=== PATIENT | female | born 1995 | race Caucasian/White ===

== ENCOUNTER → 2016-11-15 | Outpatient (CLI) | payer BC ==
--- NOTE | 2016-11-16 22:01 | DI ---
XR SACRUM/COCCYX MIN 2VW, : Clinical History: Status post fall. Previous Exam: None at this facility. Findings: AP and lateral views of the sacrum are obtained, and demonstrate anatomic alignment without fractures . A nonobstructive bowel gas pattern is noted. No pathologic calcifications are seen. Impression: No fractures.
--- NOTE | 2016-11-16 22:01 | DI ---
XR L-SPINE 2-3 VW,11/15/2016 12:00 PM: Clinical History: Status post fall. Previous Exam: None at this facility. Findings: AP and lateral views of the lumbar spine are obtained, and demonstrate some gentle levoscoliosis of t he lumbar spine centered at the L3 level. There are no pathologic calcifications. Vertebral body height is preserved. Impression: No fractures.
== END ==
LOC: MOB RAD 12:01
PROVIDERS: ATTEND Physician Assistant
DX: M53.3 Sacrococcygeal disorders, not elsewhere classified (principal); M54.5 Low back pain; S30.0XXA Contusion of lower back and pelvis, initial encounter; W10.9XXA Fall (on) (from) unspecified stairs and steps, initial encounter
CPT/HCPCS: 72100; 72220

== ENCOUNTER 2019-04-20 23:10 | Inpatient (IN) ==
[2019-04-21] MEDS ORDERED: Lactated Ringers 500 ML PRIMARY IV ONE (01:28)
[2019-04-21] MEDS ORDERED: Lactated Ringers-OB Dept 2,000 ML ONE (01:30)
[2019-04-21 01:58] LABS: Hematocrit [HCT] 34.5 % (37.0-47.0); Hemoglobin [HGB] 11.5 g/dL (12.0-16.0); MEAN CORPUSCULAR HGB CONC 33.3 g/dL (33-37); MEAN CORPUSCULAR VOLUME 86.9 FL (81-99); MEAN PLATELET VOLUME 10.6 FL (7.4-12.2); RED BLOOD COUNT 3.97 10^6/uL (4.20-5.40)
[2019-04-21] MEDS ORDERED: NALOXONE 0.4 MG/1 ML VIAL IVP PRN (06:03)
[2019-04-21] MEDS ORDERED: Lidocaine 1% 10 MG/ML - 20 ML VIAL SUBCUT PRN (06:03)
[2019-04-21] MEDS ORDERED: Carboprost Inj 250 MCG/ML AMP IM PRN (06:03)
[2019-04-21] MEDS ORDERED: Metoclopramide Inj 10 MG/2 ML VIAL IV PRN (06:03)
[2019-04-21] MEDS ORDERED: diphenhydrAMINE 50 MG/1 ML VIAL IVP PRN (06:03)
[2019-04-21] MEDS ORDERED: CITRIC ACID/SODIUM CITRATE 30 ML CUP PO PRN (06:03)
[2019-04-21] MEDS ORDERED: OXYTOCIN 10 UNIT/1 ML IM PRN (06:03)
[2019-04-21] MEDS ORDERED: CefOXitin Inj 2 GM in Sodium Chloride 0.9% 100 ML IV PRN (06:03)
[2019-04-21] MEDS ORDERED: BUTORPHANOL TARTRATE 2 MG/1 ML VIAL IVP PRN (06:03)
[2019-04-21] MEDS ORDERED: TERBUTALINE SULFATE 1 MG/1 ML SDV SUBCUT PRN (06:03)
[2019-04-21] MEDS ORDERED: ONDANSETRON 4 MG/2 ML VIAL IVP PRN (06:03)
[2019-04-21] MEDS ORDERED: Naloxone Inj 0.01 MG in Sodium Chloride 0.9% vial 1 ML IVP PRN (06:03)
[2019-04-21] MEDS ORDERED: Nalbuphine Inj 20 MG/ML Ampule IVP PRN (06:03)
[2019-04-21] MEDS ORDERED: MISOPROSTOL 200 MCG TABLET RECTAL PRN (06:03)
[2019-04-21] MEDS ORDERED: Phenylephrine Inj 50 MCG in Sodium Chloride 0.9% vial 0.5 ML IVP PRN (06:03)
[2019-04-21] MEDS ORDERED: METHYLERGONOVINE MALEATE 0.2 MG/1 ML VIAL IM PRN (06:03)
[2019-04-21] MEDS ORDERED: FAMOTIDINE 20 MG/2 ML VIAL IVP PRN ×2 (06:03)
[2019-04-21] MEDS ORDERED: ePHEDrine Inj 50 MG/ML AMP IVP PRN (06:03)
[2019-04-21] MEDS ORDERED: LIDOCAINE HCL 2 % 10 ML JELLY URO-JECT TOPICAL PRN (06:03)
[2019-04-21] MEDS ORDERED: LIDOCAINE W/ SODIUM BICARB 0.5 ML SYR SUBD PRN (06:03)
[2019-04-21] MEDS ORDERED: fentaNYL Inj 100 MCG/2 ML VIAL IV PRN (06:03)
[2019-04-21] MEDS ORDERED: Oxytocin 20 Units + LR 20 UNIT/1,000 ML BAG IV SCH ×2 (06:15→11:15)
[2019-04-21] MEDS ORDERED: Fent/Bupiv 2mcg/0.0625% Epid 250 ML ONE (06:50)
[2019-04-21] MEDS ORDERED: Lidocaine/Epi Inj 1.5% 5 ML AMPUL EPIDURAL ONE (06:57)
--- NOTE | 2019-04-21 07:19 | CRNA.PROCE ---
Central Neuraxis Block Placemt - - Safety Measures: Time Out Taken - - Type of Block: Epidural Reason for Block: Analgesia Moniters Used During Block: SPO2, NIBP Skin Prep Used: ChloroPrep Skin Infiltration - Enter Amount Used in Comment Field: 1% Xylocaine (mL): Yes (skin wheal) Spinal Needle Used: 18 Hustead 80 mm Local Anesthetic - Enter Amount Used in Comment Field: 1.5 % Xylocaine with Epinephrine 1:200,000 (mL): Yes (5ml) Number of Centimeters Catheter Threaded: 4 Bioclusive Dressing Applied: Yes Anesthesia Time - Other Weight: 94.347 kg Height: 5 ft 5 in Body Mass Index (BMI): 34.6
--- NOTE | 2019-04-21 07:20 | CRNA.PROGR ---
Anesthesia Time - Procedure/Recovery Time Start Date: 04/21/19 End Date: 04/22/19 Anesthesia : Time In: 06:58 Anesthesia : Time Out: 23:37 Anesthesia : Total Time: 2439 - Total Anesthesia Time Total Anesthesia Time (minutes): 2439 - Other Weight: 94.347 kg Height: 5 ft 5 in Body Mass Index (BMI): 34.6 Physical Status: P2 Anesthesia Type: Epidural Obstetrics: Planned vaginal delivery w/ neuraxial labor anesthesia/analog
[2019-04-21] MEDS ORDERED: fentaNYL 2 MCG/BUPIVACAINE 0.0625%/NS 0.9% 250 ML BAG EPIDURAL SCH (07:30)
[2019-04-21 07:45] LABS: Hematocrit [HCT] 33.9 % (37.0-47.0); Hemoglobin [HGB] 11.4 g/dL (12.0-16.0); MEAN CORPUSCULAR HGB CONC 33.6 g/dL (33-37); MEAN CORPUSCULAR VOLUME 86.5 FL (81-99); MEAN PLATELET VOLUME 10.5 FL (7.4-12.2); RED BLOOD COUNT 3.92 10^6/uL (4.20-5.40)
[2019-04-21] MEDS: CALCIUM CARBONATE 500 MG (TUMS) CHEWABLE TABLET PO PRN ×2 (07:53→11:57)
[2019-04-21] MEDS: Lactated Ringers 1,000 ML PRIMARY IV SCH ×2 (07:54→17:41)
[2019-04-21] MEDS ORDERED: fentaNYL Inj 100 MCG/2 ML VIAL ONE (23:16)
[2019-04-22] MEDS ORDERED: LIDOCAINE MPF 2% - 5 ML (20 MG/1 ML) ONE
[2019-04-22] MEDS ORDERED: METHYLERGONOVINE MALEATE 0.2 MG/1 ML VIAL IM ONE ×2 (00:11→01:46)
[2019-04-22] MEDS ORDERED: fentaNYL Inj 100 MCG/2 ML VIAL ONE (00:18)
[2019-04-22] MEDS ORDERED: OXYTOCIN 10 UNIT/1 ML ONE ×2 (00:19→00:20)
[2019-04-22] MEDS ORDERED: Lactated Ringers 2,000 ML PRIMARY IV ONE (00:20)
[2019-04-22] MEDS ORDERED: ONDANSETRON 4 MG/2 ML VIAL ONE (00:30)
[2019-04-22] MEDS ORDERED: DEXAMETHASONE PF 10 MG/1 ML VIAL ONE (00:31)
[2019-04-22] MEDS ORDERED: HYDROmorphone 2 MG/1 ML IVP PRN (01:00)
[2019-04-22] MEDS ORDERED: Prochlorperazine Edisylate Inj 10mg/2ml vial IVP PRN (01:00)
[2019-04-22] MEDS ORDERED: LIDOCAINE W/ SODIUM BICARB 0.5 ML SYR SUBD PRN (01:00)
--- NOTE | 2019-04-22 01:03 | CRNA.PROGR ---
Anesthesia Time - Procedure/Recovery Time Start Date: 04/21/19 End Date: 04/22/19 Anesthesia : Time In: 23:38 Anesthesia : Time Out: 00:59 Anesthesia : Total Time: 81 - Total Anesthesia Time Total Anesthesia Time (minutes): 81 - Other Weight: 94.347 kg Height: 5 ft 5 in Body Mass Index (BMI): 34.6 Physical Status: P2 Anesthesia Type: Spinal Block Obstetrics: C/S with anesthesia/analog following neuraxial labor
--- NOTE | 2019-04-22 01:04 | CRNA.PROGR ---
Anesthesia Recovery Phase I - Post Anesthesia Evaluation Patient's Condition on Arrival in Phase I: Stable Pain Level: 2
--- NOTE | 2019-04-22 01:07 | CRNA.PROCE ---
Central Neuraxis Block Placemt - - Type of Block: Subarachnoid Reason for Block: Surgical Moniters Used During Block: EKG, SPO2, NIBP Positioning: Sitting Skin Prep Used: ChloroPrep Draped: No Spinal Needle Used: 25 Familia 80 mm Local Anesthetic - Enter Amount Used in Comment Field: 0.75 % Bupivacaine with Dextrose (ml): Yes (2ml) Additive Used - Enter Amount Used in Comment Field: Fentanyl (mcg): Yes (15mcg) Bioclusive Dressing Applied: No Anesthesia Time - Other Weight: 94.347 kg Height: 5 ft 5 in Body Mass Index (BMI): 34.6
[2019-04-22] MEDS ORDERED: SUCCINYLCHOLINE CHLORIDE 20 MG/1 ML - 10 ML ONE (01:14)
[2019-04-22] MEDS ORDERED: KETOROLAC 30 MG/1 ML VIAL ONE (01:15)
[2019-04-22] MEDS ORDERED: KETOROLAC 30 MG/1 ML VIAL IM ONE (01:15)
--- NOTE | 2019-04-22 01:44 | OB.OP.NOTE ---
Operative Report - - Surgeon: Ever Rock MD Vest Backer: Juancarlos Chapa MD Anesthesia Type: General Anesthesia Provider: Gallito Cheung CRNA Surgery Date: 04/22/19 Preoperative Diagnosis: Cephalopelvic disproportion Postoperative Diagnosis: same, delivered Procedure: Primary section Complications: hemorrhage. Estimated Blood Loss (mL): 1,800 Urine Output (mL): 100 Fluids: 1200 cc LR, 20 mU of pitocin Indications: Pt is a 24 yo G1 now P1 at 39 5/7 weeks gestation by early u/s who presented last noc in labor. She progressed very slowly through the day and was finally c/c/0 at 2114. She pushed for 90 minutes, with no descent of the baby's head past +1 station and no change in station for 1 hour. Baby had developed significant caput and molding of his head. Pt requested a delivery. Findings: male , acynclitic presentation, occiput posterior, meconium stained fluid upon entering the uterus. Description of Procedure: The patient was taken to the operating room and spinal anesthesia was placed. She was placed in yellow fin stirrups in dorsal litotomy position to facilitate delivery of the baby's head from below if needed. Her harris catheter was replaced. She was prepped and draped in a sterile fashion with a leftward tilt. The patient's spinal anesthesia was found to not be adequate, so she underwent general anesthesia. A Pfannenstiel skin incision was then made with the scalpel and carried through to the underlying layer of fascia with the Bovie. The fascia was incised in the midline and the incision extended laterally with the Bovie. The superior aspect of the fascial incision was then grasped with the Betzy clamps, elevated, and the underlying rectus muscles dissected off bluntly. Attention was then turned to the inferior aspect of this incision which, in a similar fashion, was grasped with the Betzy clamps and the rectus muscles dissected off both bluntly and with the Bovie. The rectus muscle was then in the midline, and the peritoneum identified and entered digitally. The peritoneal incision was then extended superiorly and inferiorly with good visualization of the bladder. The Russell retractor was then inserted and the vesicouterine peritoneum was identified. The lower uterine segment was incised in a transverse fashion with the scalpel. The uterine incision was then extended laterally in a blunt fashion. The 's head was deep in the pelvis but not considerably wedged, and it was delivered atraumatically. Time of general anesthesia start to cord clamp was approximately 3 minutes. Copious amounts of meconium were noted upon entry into the uterus. The baby's nose and mouth were suctioned with the bulb suction and the cord clamped and cut. There was no delay in cord clamping secondary to the general anestheia and the baby's clinical condition. The was handed off to the awaiting nurse. Cord gases and cord blood were sent for analysis. The placenta was then removed manually; the uterus exteriorized, and cleared of all clots and debris. The uterus was noted to have significant atony, so besides the 20 mU of pitocin that was infusing, she also received 0.25 mg of methergine and then 1000 mcg of cytotec rectally. The uterine incision was repaired with 0 Vicryl in a running, locked fashion. Significant bleeding was still noted from within the uterus and along the uterine incision despite this, so Dr. Chapa placed bilateral O'leary stitches. This helped slow the pt's bleeding nicely. A second layer of the same suture was used to obtain excellent hemostasis. The peritoneal cavity was then copiously irrigated with warm saline. The uterus was returned to the abdomen. The paracolic gutters were copiously irrigated with warm saline and a second look at the uterine incision continued to reveal excellent hemostasis. The peritoneum was closed with 3-0 Vicryl. The fascia reapproximated with 0 Vicryl in a running fashion, starting from both l ateral margins and then meeting in the middle. The subcutaneous space was irrigated copiously with warm saline and then closed first with 3-0 Vicryl and then more superficially with Insorb absorbable sutures. The skin was reapproximated with Steri-Strips and a Silverlon dressing applied. Fundal massage was completed with approximately 600 cc of clot and blood expressed from the uterus. The uterus was then firm and 1 below the umbilicus. The patient tolerated the procedure well. Sponge, lap, and needle counts were correct x2. Mefoxin was given preoperatively less than one hour prior to incis ion time. Azithromycin was not given after cord clamp because of the pt's allergy to this medication. She was given 1 dose of invanz post-operatively. The patient was awakened and taken to the recovery room in stable condition. Baby's apgars were 2, 8 and 10. Weight was 7#9 oz.
[2019-04-22] MEDS ORDERED: DIPH,PERTUSS,TET(ADACEL) VAC/PF 0.5 ML (Tdap) IM ONE (01:46)
[2019-04-22] MEDS ORDERED: ONDANSETRON 4 MG/2 ML VIAL IVP PRN (01:46)
[2019-04-22] MEDS ORDERED: diphenhydrAMINE 25 MG CAPSULE PO PRN (01:46)
[2019-04-22] MEDS ORDERED: FAMOTIDINE 20 MG/2 ML VIAL IVP PRN (01:46)
[2019-04-22] MEDS ORDERED: MISOPROSTOL 200 MCG TABLET RECTAL ONE (01:46)
[2019-04-22] MEDS ORDERED: Nalbuphine Inj 20 MG/ML Ampule IVP PRN (01:46)
[2019-04-22] MEDS ORDERED: CALCIUM CARBONATE 500 MG (TUMS) CHEWABLE TABLET PO PRN (01:46)
[2019-04-22] MEDS ORDERED: Naloxone Inj 0.01 MG, Sodium Chloride 0.9% vial 1 ML IVP PRN ×2 (01:46)
[2019-04-22] MEDS ORDERED: diphenhydrAMINE 50 MG/1 ML VIAL IV PRN (01:46)
[2019-04-22] MEDS ORDERED: Oxytocin 20 Units + LR 20 UNIT/1,000 ML BAG IV SCH (01:46)
[2019-04-22] MEDS ORDERED: BUTORPHANOL TARTRATE 2 MG/1 ML VIAL IVP PRN (01:46)
[2019-04-22] MEDS: HYDROmorphone 2 MG/1 ML IV PRN ×2 (03:03→05:38)
[2019-04-22] MEDS: LANOLIN HPA 40 GM TUBE TOPICAL PRN (03:29)
[2019-04-22 05:16] LABS: BASOPHILS # (AUTO) 0.01 10*3/UL; BASOPHILS % (AUTO) 0 % (0-1); EOSINOPHILS # (AUTO) 0 10*3/UL; EOSINOPHILS % (AUTO) 0 % (0-8); Hematocrit [HCT] 25.4 % (37.0-47.0); Hemoglobin [HGB] 8.4 g/dL (12.0-16.0); LYMPHOCYTES # (AUTO) 0.74 10*3/uL; MEAN CORPUSCULAR HGB CONC 33.1 g/dL (33-37); MEAN CORPUSCULAR VOLUME 86.7 FL (81-99); MEAN PLATELET VOLUME 10.4 FL (7.4-12.2); MONOCYTES # (AUTO) 1.46 10*3/UL (0.3-0.8); MONOCYTES % (AUTO) 6.5 % (5-15); NEUTROPHILS # (AUTO) 20.32 10*3/UL; NEUTROPHILS % (AUTO) 89.9 % (50-80); RED BLOOD COUNT 2.93 10^6/uL (4.20-5.40)
[2019-04-22 05:33] LABS: PLATELET MORPHOLOGY COMMENT NORMAL MORPHOLOGY (NORM); RBC MORPHOLOGY COMMENT NORMAL MORPHOLOGY (NORM); WBC MORPHOLOGY COMMENT NORMAL MORPHOLOGY (NORM)
[2019-04-22] MEDS: oxyCODONE-ACETAMINOPHEN 5-325 TAB PO PRN ×3 (07:00→16:24)
[2019-04-22] MEDS: D5-LR 1,000 ML PRIMARY IV SCH ×3 (07:01→17:34)
[2019-04-22] MEDS: KETOROLAC 15 MG/1 ML VIAL IVP SCH ×4 (07:30→19:43)
[2019-04-22] MEDS: Lactated Ringers-OB Dept 1,000 ML PRIMARY IV SCH ×3 (07:32→08:16)
[2019-04-22] MEDS: Lactated Ringers 1,000 ML PRIMARY IV SCH (07:32)
[2019-04-22] MEDS ORDERED: Ertapenem Inj 1 GM in Sodium Chloride 0.9% 100 ML IV ONE (13:03)
--- NOTE | 2019-04-22 14:51 | CRNA.PROGR ---
Anesthesia Note - Progress Notes Anesthesia Progress Note: Lying in bed. Cheerful. States she's comfortable and has been comfortable . Has not ambulated much. Shaikh still in. States back is a little sore, belie ves its related to positioning in bed. She denies Headache. I encouraged ambulation. Had a significant blood loss with . CBC and BMP 04/22/19 05:04 No apparent anesthetic difficulties.
[2019-04-22] MEDS: FERROUS GLUCONATE 324 MG TABLET PO SCH ×2 (15:55→20:15)
[2019-04-23] MEDS: oxyCODONE-ACETAMINOPHEN 5-325 TAB PO PRN ×4 (02:47→17:04)
[2019-04-23] MEDS: IBUPROFEN 800 MG TABLET PO SCH ×3 (02:57→19:01)
[2019-04-23] MEDS: D5-LR 1,000 ML PRIMARY IV SCH ×3 (06:48→18:09)
[2019-04-23] MEDS ORDERED: IBUPROFEN 800 MG TABLET PO SCH (07:26)
[2019-04-23] MEDS: Prenatal Multivitamin Tab 1 TAB TAB PO SCH (08:09)
[2019-04-23] MEDS: Senna/Docusate Tab 1 TAB TAB PO SCH ×2 (08:09→21:10)
[2019-04-23] MEDS: FERROUS GLUCONATE 324 MG TABLET PO SCH ×3 (08:09→21:10)
[2019-04-23] MEDS: LANOLIN HPA 40 GM TUBE TOPICAL PRN (08:09)
[2019-04-23 08:42] LABS: BASOPHILS # (AUTO) 0.01 10*3/UL; BASOPHILS % (AUTO) 0.1 % (0-1); EOSINOPHILS # (AUTO) 0.02 10*3/UL; EOSINOPHILS % (AUTO) 0.1 % (0-8); LYMPHOCYTES # (AUTO) 2.24 10*3/uL; MEAN CORPUSCULAR HGB CONC 32.4 g/dL (33-37); MEAN CORPUSCULAR VOLUME 89.4 FL (81-99); MEAN PLATELET VOLUME 9.4 FL (7.4-12.2); MONOCYTES # (AUTO) 1.32 10*3/UL (0.3-0.8); MONOCYTES % (AUTO) 7.8 % (5-15); NEUTROPHILS # (AUTO) 13.34 10*3/UL; NEUTROPHILS % (AUTO) 78.4 % (50-80); RED BLOOD COUNT 2.35 10^6/uL (4.20-5.40)
[2019-04-23 08:47] LABS: Hemoglobin [HGB] 6.8 g/dL (12.0-16.0); PLATELET MORPHOLOGY COMMENT NORMAL MORPHOLOGY (NORM); RBC MORPHOLOGY COMMENT NORMAL MORPHOLOGY (NORM); WBC MORPHOLOGY COMMENT NORMAL MORPHOLOGY (NORM)
[2019-04-24] MEDS: IBUPROFEN 800 MG TABLET PO SCH ×3 (04:40→20:58)
[2019-04-24 05:03] LABS: MEAN CORPUSCULAR HGB CONC 32.3 g/dL (33-37); MEAN CORPUSCULAR VOLUME 89.7 FL (81-99); MEAN PLATELET VOLUME 9.2 FL (7.4-12.2); RED BLOOD COUNT 2.24 10^6/uL (4.20-5.40)
[2019-04-24 05:07] LABS: Hematocrit [HCT] 20.1 % (37.0-47.0); Hemoglobin [HGB] 6.5 g/dL (12.0-16.0)
[2019-04-24] MEDS: D5-LR 1,000 ML PRIMARY IV SCH ×3 (06:38→17:31)
[2019-04-24] MEDS: Prenatal Multivitamin Tab 1 TAB TAB PO SCH (09:08)
[2019-04-24] MEDS: Senna/Docusate Tab 1 TAB TAB PO SCH ×2 (09:09→20:59)
[2019-04-24] MEDS: FERROUS GLUCONATE 324 MG TABLET PO SCH ×3 (09:09→20:59)
[2019-04-24] MEDS: oxyCODONE-ACETAMINOPHEN 5-325 TAB PO PRN ×2 (13:20→23:56)
[2019-04-24] MEDS ORDERED: Sodium Chloride 0.9% 500 ML PRIMARY IV ONE (14:22)
[2019-04-24] MEDS ORDERED: Acetaminophen 1000mg Inj 1,000 MG/100 ML VIAL IV PRN (14:24)
[2019-04-24] MEDS ORDERED: diphenhydrAMINE 50 MG/1 ML VIAL IVP ONE (14:25)
--- NOTE | 2019-04-24 14:43 | OB.PROGRES ---
Subjective Post Day: 1 Pain Management: PO Shaikh Catheter: Yes Flatus: Yes Lochia Color: Rubra/Red Small 10-25 ml Diet: Regular Feeding Method: Exculsively Ambulating: Yes Objective - General General Appearance: POSITIVE: No Acute Distress, Cooperative - Cardiovacular Cardiovascular Exam: POSITIVE: RRR, No Murmur Edema: +1 Pedal Edema Extremities: Negative Femi's - Bilaterally - Respiratory Respiratory Exam: POSITIVE: Clear to Auscultation - Bilaterally, Breathing Non Labored - Abdomen Bowel Sounds: Present Abdominal Wound Assessment: Silverlone Dressing Assesstment / Plan (1) S/P primary low transverse Current Visit: Yes Status: Acute (2) Cephalopelvic disproportion Current Visit: Yes Status: Acute Qualifiers: Cephalopelvic disproportion type: outlet contraction of pelvis Fetus number: single or unspecified fetus Qualified Code(s): O33.3XX0 - Maternal care for disproportion due to outlet contraction of pelvis, not applicable or unspecified Assessment / Plan: -routine cares. -anemia: currently asymptomatic, will monitor for now. -breast feeding coming along each day. -rh positive. -rubella immune. -anticipate d/c home in 1-2 days depending on clinical course.
[2019-04-24 22:13] VITALS: RESP 18
[2019-04-25] MEDS: D5-LR 1,000 ML PRIMARY IV SCH (03:06)
[2019-04-25] MEDS: IBUPROFEN 800 MG TABLET PO SCH (03:10)
[2019-04-25 05:57] LABS: Hematocrit [HCT] 25.8 % (37.0-47.0); Hemoglobin [HGB] 8.6 g/dL (12.0-16.0); MEAN CORPUSCULAR HGB CONC 33.3 g/dL (33-37); MEAN CORPUSCULAR VOLUME 88.7 FL (81-99); RED BLOOD COUNT 2.91 10^6/uL (4.20-5.40)
[2019-04-25] MEDS: Prenatal Multivitamin Tab 1 TAB TAB PO SCH (08:04)
[2019-04-25] MEDS: FERROUS GLUCONATE 324 MG TABLET PO SCH (08:04)
[2019-04-25] MEDS: Senna/Docusate Tab 1 TAB TAB PO SCH (08:04)
[2019-04-25 08:11] VITALS: BP 108/80; TEMP 97.2; O2SAT 97
--- NOTE | 2019-05-14 15:52 | OB.PROGRES ---
Date of Service: 04/21/19 Time of Service: 21:10 Interval History: Pt is a 24 yo G1 at 39 6/7 weeks gestation by early /s who presented late last evening in labor--her cervix was 3/80/-3 initialy, then 5-6/80/-2 this morning. She underwent amniotomy this morning with the return of clear fluid. She progressed very slowly through active labor, despite pitocin augmentation. She was finally complete around 2100. Currently pushing. Epidural is working fairly well. No other concerns except that she is exhausted. Objective - Cervical Exam Cervical Exam: /0 [place]: every 2-3 minutes, palpating hard. Heart Rate Interpretation Category: Category I - Labs CBC and BMP: 04/25/19 05:55 - Vital Signs Last Taken Vital Signs: Vital Signs - Last Taken Temperature 97.2 F 04/25/19 08:08 Pulse Rate 79 04/25/19 08:08 Respiratory Rate 18 04/25/19 08:08 Blood Pressure 108/80 04/25/19 08:08 Pulse Ox 97 04/25/19 08:08 Assessment and Plan - Patient Problems (1) Prolonged labor Status: Acute Code(s): O63.9 - Long labor, unspecified Qualifiers: Prolonged labor type: prolonged first stage of labor Qualified Code(s): O6 3.0 - Prolonged first stage (of labor) - Assessment / Plan Additional Assessment/Plan Details: -currently pushing, but baby noted to still be high. -fairly comfortable with her epidural. -GBS negative. -expectant management.
--- NOTE | 2019-05-14 16:13 | OB.PROGRES ---
Subjective Post Day: 1 Pain Management: PO Shaikh Catheter: No Flatus: Yes Lochia Color: Rubra/Red Scant < 10 ml Diet: Regular Feeding Method: Exculsively Ambulating: Yes Concerns / Additional Information: Had an episode of hypotension this morning that really scared her, I was not called by nursing staff. She is concerned that she will get dizzy and fall at home and her could possibly be at work. Objective - General General Appearance: POSITIVE: No Acute Distress, Cooperative - Cardiovacular Cardiovascular Exam: POSITIVE: RRR, Systolic Murmur (flow murmur) Edema: +1 Pedal Edema Extremities: Negative Femi's - Bilaterally - Respiratory Respiratory Exam: POSITIVE: Clear to Auscultation - Bilaterally, Breathing Non Labored - Abdomen Bowel Sounds: Present Abdominal Wound Assessment: Silverlone Dressing Assesstment / Plan (1) Prolonged labor Status: Resolved Qualifiers: Prolonged labor type: prolonged first stage of labor Qualified Code(s): O63.0 - Prolonged first stage (of labor) (2) S/P primary low transverse Status: Acute (3) Postoperative anemia due to acute blood loss Status: Acute Assessment / Plan: -discussed anemia with pt and her family in detail--will give 2 units of PRBC now, pre-treat with tylenol and benedryl. Consent signed. -routine post-op cares. -breast feeding going well. -rh positive. -rubella immune. -probable d/c home tomorrow after blood administration today.
--- NOTE | 2019-05-14 16:24 | DCSUMMARY ---
Hospitalization Summary Admit Date: 04/21/19 Discharge Date: 04/25/19 Primary Diagnosis:: Term at 39 6/7 weeks, GBS negative Secondary Diagnosis:: Term at 39 6/7 weeks gestation, GBS negative, cephalopelvic disproportion, intra-operative hemorrhage secondary to uterine atony, post- operative anemia secondary to acute blood loss--requiring transfusion of 2 units of PRBC. Primary Surgery and Date: Primary section on 04/22/19. Delivery Type: Hospital Course: Pt was admitted on the above date, in labor. She had a prolonged active phase of labor, but eventually became complete and started pushing. She pushed for over 2 hours with no descent of the vertex over at least 90 minutes. She eventulaly was taken for a primary section for cephalopelvic disproportion. For details of her operative, please see the operative report elsewhere in the chart. / Postop Complications: Pt did have a post-operative anemia that was secondary to acute blood loss during surgery--she received 2 units of PRBC for symptomatic anemia and was feeling much better the next day. [place] Complications: none Exam - Vitals Vital Signs: Vital Signs Temperature 97.2 F Temperature Source Oral Pulse Rate [Pulse Oximeter] 79 Pulse Rate [right hand] 86 Pulse Rate 71 Respiratory Rate 18 Blood Pressure [Left Arm] 108/80 Blood Pressure [Right Arm] 119/63 Blood Pressure 121/74 Pulse Ox [right hand] 99 Pulse Ox 97 Oxygen Flow Rate 2 Oxygen Delivery Method [right Room Air hand] Oxygen Delivery Method Room Air Height 5 ft 5 in Weight 208 lb - General General Appearance: No Acute Distress - Respiratory Respiratory Exam: POSITIVE: Clear to Auscultation - Bilaterally, Breathing Non Labored - Cardiovascular Cardiovascular Exam: POSITIVE: RRR, No Murmur - GI/Abdominal GI/Abdominal Exam: POSITIVE: Normal Bowel Sounds, Non Tender, Non Distended, Soft - Extremities Extremities Exam: POSITIVE: Normal Inspection, Normal Capillary Refill, +1 Edema - Back Back Exam: POSITIVE: Normal Inspection - Neurological Neurological Exam: POSITIVE: Alert, Oriented x 3 - Psychiatric Psychiatric Exam: POSITIVE: Normal Affect, Normal Mood - Integumentary Integumentary Exam: POSITIVE: Normal Color, Warm, Dry Patient Problems - Patient Problem List (1) Prolonged labor Status: Resolved Code(s): O63.9 - Long labor, unspecified Qualifiers: Prolonged labor type: prolonged first stage of labor Qualified Code(s): O63.0 - Prolonged first stage (of labor) Category: Medical (2) S/P primary low transverse Status: Acute Code(s): Z98.891 - History of uterine scar from previous surgery Category: Surgical (3) Postoperative anemia due to acute blood loss Status: Acute Code(s): D62 - Acute posthemorrhagic anemia Category: Medical
== END 2019-04-25 10:55 | disposition home or self-care (01) | DRG 788 ==
LOC: OBOP 23:10 → OBIP 04-21 06:03 → MED/SURG 04-22 01:28 → OBIP 04-22 02:02
PROVIDERS: ADMIT Family Medicine; ATTEND Family Medicine